=== PATIENT | male | born 1985 | race Caucasian/White ===

== ENCOUNTER → 2020-02-11 14:47 | Outpatient (BNVA) | payer MEDICAID, SELFPAY | PROVIDERS: PCP Internal Medicine; Referring Provider Internal Medicine; Visit Provider Physician Assistant | DX: Z76.89 Persons encountering health services in other specified circumstances (principal) ==

== ENCOUNTER → 2020-03-17 08:14 | Outpatient (BNVA) | payer MEDICAID, SELFPAY | PROVIDERS: PCP Internal Medicine; Visit Provider Surgery | DX: Z76.89 Persons encountering health services in other specified circumstances (principal) ==

== ENCOUNTER → 2020-03-23 07:58 | Outpatient (BNVA) | payer SELFPAY | PROVIDERS: PCP Internal Medicine; Visit Provider Surgery | DX: Z76.89 Persons encountering health services in other specified circumstances (principal) ==

== ENCOUNTER → 2020-03-29 08:08 | Outpatient (BNVA) | payer SELFPAY | PROVIDERS: PCP Internal Medicine; Referring Provider Internal Medicine; Visit Provider Surgery | DX: Z76.89 Persons encountering health services in other specified circumstances (principal) ==

== ENCOUNTER 2025-03-21 14:40 | Outpatient (AMB) | payer BC, SELFPAY ==
--- NOTE | 2025-03-21 14:44 | A.OFFPC_ITS ---
Vital Signs 03/21/25 14:45 03/21/25 15:32 Height 5 ft 11.75 in Weight 323 lb 6 oz BMI 44.2 BP 150/96 H 126/88 Blood Pressure Location Lt brachial Lt brachial Position Sitting Respiration 16 Pulse 93 Pulse Source Pulse Oximeter Temp 96.6 F L Temp Source Temporal Artery Scan Pulse Oximetry (%) 98 Oxygen Delivery Method Room Air Intake Visit Reasons: F/U diabetes - see comments Personal Injury Attorney Required: No Accompanied by: Self / Same As Patient Allergies No Known Allergies Allergy (Verified 03/21/25 14:48) Medication List - Last Reconciled 03/21/25 by Dianelys Sewell MD atorvastatin 10 mg PO BEDTIME clonidine HCl 0.1 mg PO QPM PRN duloxetine 30 mg PO DAILY duloxetine 60 mg PO DAILY tirzepatide (Mounjaro) mg subcut Tobacco use date assessed: 03/21/25 Dental Screening Dental Screen Date: 03/21/25 Did you have a dental visit in the last 12 months?: Yes Did you have a dental problem in the last 6 months where you did not have access to dental care?: No Was dental information given to patient?: Patient has dentist HPI HPI Comments History of Present Illness Details The patient is a 39-year-old male presenting to re-establish care and for medication management. Hypertension: The patient recently presented to the emergency room at [facility] with a blood pressure of 154/116 mmHg, where he experienced slight chest pains, back and shoulder pain, and chest tightness. He reports significant life stressors, including work and family issues, which coincided with the blood pressure spike. He takes clonidine occasionally for sleep, which also helps with his blood pre ssure. Hyperlipidemia: The patient takes atorvastatin for high cholesterol and secondary prevention of cardiovascular events. He had previously stopped the medication based on advice from a different provider but has since resumed taking it. Anxiety: The patient is prescribed duloxetine 90 mg (60 mg and 30 mg) for anxiety and reports taking it almost every day. He acknowledges occasional non-adherence, noting that he can tell a difference and becomes more irritable or anxious when he is not on it. He sometimes forgets to take it when he feels well, despite keeping it next to his toothbrush as a reminder. Obesity/Diabetes mellitus type 2: The patient is on Mounjaro for weight management and has seen his weight decrease from a previous 334 pounds to 319 pounds as of this morning. He exp erienced initial side effects of nausea, bloating, and severe diarrhea, which have since resolved. Obstructive Sleep Apnea: The patient uses a CPAP machine, having switched from a BiPAP, and finds it beneficial for his sleep. Following a repeat sleep study, his pressure level was lowered, which required him to purchase a new machine. 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 1. Little interest or pleasure in doing things: not at all 2. Feeling down, depressed, or hopeless: not at all 3. Trouble falling or staying asleep, or sleeping too much: several days 4. Feeling tired or having little energy: several days 5. Poor appetite or overeating: not at all 6. Feeling bad about yourself - or that you are a failure or have let yourself or your family down: not at all 7. Trouble concentrating on things, such as reading the newspaper or watching television: several days 8. Moving or speaking so slowly that other people could have noticed. Or the opposite - being so fidgety or restless that you have been moving around a lot more than usual: not at all 9. Thoughts that you would be better off or of hurting yourself in some way: not at all Total score: 3 Depression Screening Interpretation: Negative Depression Screening Done: Yes 49549 - PHQ-9 Billing: Yes Source: Developed by Drs. Damon Parish, Jeimy Rasmussen, Fer Murillo and colleagues, with an educational juan antonio from [employer]. AUDIT C Alcohol Use Questionnaire (AUDIT-C) 1. How often do you have a drink containing alcohol?: Monthly or less 2. How many drinks containing alcohol do you have on a typical day when you are drinking?: 1 or 2 3. How often do you have six or more drinks on one occasion?: Never Total Score: 1 ROSI-7 AMB Questionnaire ROSI-7 Date ROSI - 7 assessed: 03/21/25 Feeling nervous, anxious, or on edge: 2 = More than half the days Not being able to stop or control worryin = More than half the days Worrying too much about different things: 2 = More than half the days Trouble relaxin = More than half the days Being so restless that it is hard to sit still: 1 = Several days Becoming easily annoyed or irritable: 2 = More than half the days Feeling afraid as if something awful might happen: 0 = Not at all Total ROSI-7 score (0-4 normal; 5-9 mild; 10-14 moderate; 15-21 severe): 11 Source: Developed by Drs. Damon Parish, Jeimy Rasmussen, Fer Murillo and colleagues, with an educational juan antonio from [employer]. Review of Systems Narrative Review of Systems - Constitutional: Reports weight loss and improved endurance. - Cardiovascular: per hpi - Denies current swelling in the legs. - Respiratory: Reports his endurance has significantly improved with weight loss. - Gastrointestinal: constipation occasionally - Pyschiatric: Reports being under a lot of stress. Physical exam (Primary Care) Vital Signs: Last Vital Signs Temp 96.6 F L 03/21/25 14:45 Pulse 93 03/21/25 14:45 Resp 16 03/21/25 14:45 BP 126/88 03/21/25 15:32 Pulse Ox 98 03/21/25 14:45 Oxygen Delivery Method Room Air 03/21/25 14:45 BMI result Body Mass Index 44.2 Tobacco/Smoking Status: Tobacco use Status Tobacco use date assessed 03/21/25 03/21/25 14:47 Patient Tobacco Use Status Current someday Tobacco 03/21/25 14:55 e-Cigarette/Vaping Use Never Used 03/21/25 14:55 PHQ-9: PHQ-9 Score PHQ-9: Total score 3 03/21/25 16:21 Depression Screening Interpretation: Negative Narrative Physical Exam - Vitals: Blood pressure is 126/88 mmHg on repeat. - Cardiovascular: Heart has normal sounds and a soft murmur - Respiratory: Lungs are clear to auscultation bilaterally. - Abdomen: Soft, non-tender to palpation, with normal sounds. - Extremities: No edema noted. Coding Level of Care Code Est Pt Level 4 (49029) Complex EM visit Add On G2211 Diagnoses Primary hypertension I10 Hyperlipidemia, unspecified hyperlipidemia type E78.5 Hyperlipidemia type: unspecified Type 2 diabetes mellitus without complication, without long-term current use of insulin E11.9 Diabetes mellitus type: type 2 Diabetes mellitus intermediate teacher insulin use: without intermediate teacher use Diabetes mellitus complication status: without complication Morbid obesity E66.01 KAELYN (obstructive sleep apnea) G47.33 Additional Codes PHQ-9 - 26448 - PHQ-9 Billing: Yes ([id number]) Assessment & Plan Assessment & Plan (1) Primary hypertension: Code(s): I10 - Essential (primary) hypertension Category: Medical (2) Hyperlipidemia, unspecified: Code(s): E78.5 - Hyperlipidemia, unspecified Category: Medical Qualifiers: Hyperlipidemia type: unspecified Qualified Code(s): E78.5 - Hyperlipidemia, unspecified (3) Diabetes mellitus: Code(s): E11.9 - Type 2 diabetes mellitus without complications Category: Medical Qualifiers: Diabetes mellitus type: type 2 Diabetes mellitus intermediate teacher insulin use: without detention use Diabetes mellitus complication status: without complication Qualified Code(s): E11.9 - Type 2 diabetes mellitus without complications (4) Morbid obesity: Code(s): E66.01 - Morbid (severe) obesity due to excess calories Category: Medical (5) KAELYN (obstructive sleep apnea): Code(s): G47.33 - Obstructive sleep apnea (adult) (pediatric) Category: Medical Plan Assessment and Plan 1. Hypertension - The patient's blood pressure has improved to 126/88 mmHg - The plan is to advise the patient to take clonidine nightly to help manage blood pressure and improve sleep. - The blood pressure goal is less than 130/80 mmHg. 2. Hyperlipidemia - The patient understands the rationale for taking atorvastatin for plaque prevention. - He has restarted the medication. 3. Anxiety - Managed with duloxetine, though adherence is intermittent sometimes. 4. Obesity/Diabetes mellitus type 2 - The patient is responding well to Mounjaro with significant weight loss. - The importance of combining it with diet and exercise was emphasized. - Refills for Mounjaro will be sent. 5. Obstructive Sleep Apnea - Well-managed on CPAP. - The plan is to continue nightly use. Follow up in 4 months for physical Plan - Advised patient to take clonidine every night to help with blood pressure and sleep. - Continue atorvastatin daily for hyperlipidemia - Continue duloxetine 90 mg (60 mg and 30 mg) daily for anxiety. - Continue weekly Mounjaro injections for weight management. - Continue nightly CPAP use for obstructive sleep apnea. Discussion Notes I discussed with the patient his recent visit to the emergency room for a hypertensive crisis, noting that his blood pressure today has significantly improved to 126/88 mmHg. We reviewed the contribution of significant life stressors to his blood pressure elevation. I advised him to take clonidine every night to help manage both his blood pressure and sleep, explaining that the ideal BP target is below 130/80 mmHg. We confirmed the importance of continuing atorvastatin for secondary prevention. We also discussed his excellent progress with weight loss and diabetes mellitus type 2 treatment on Mounjaro and the need to continue combining it with diet and exercise. Patient Instructions - Take your clonidine medication every night. - This will help with both your sleep and your blood pressure. - Continue taking atorvastatin every day for your cholesterol. - Be sure to take your duloxetine for anxiety every day. - Continue your weekly Mounjaro injections for weight loss. - Continue to use your CPAP machine every night. Orders: Orders Hemoglobin A1c Today E11.9 - Type 2 diabetes mellitus without complications, E66.01 - Morbid (severe) obesity due to excess calories, E78.5 - Hyperlipidemia, unspecified, I10 - Essential (primary) hypertension Herpes Simplex Virus Ab IgG Today Z20.2 - Contact with and (suspected) exposure to infections with a predominantly sexual mode of transmission Comprehensive Met. Panel Today E11.9 - Type 2 diabetes mellitus without complications, E66.01 - Morbid (severe) obesity due to excess calories, E78.5 - Hyperlipidemia, unspecified, I10 - Essential (primary) hypertension Complete Blood Count Auto Diff Today E11.9 - Type 2 diabetes mellitus without complications, E66.01 - Morbid (severe) obesity due to excess calories, E78.5 - Hyperlipidemia, unspecified, I10 - Essential (primary) hypertension TSH reflex Free T4 Today E11.9 - Type 2 diabetes mellitus without complications, E66.01 - Morbid (severe) obesity due to excess calories, E78.5 - Hyperlipidemia, unspecified, I10 - Essential (primary) hypertension Microalbumin, Random (w Creat) Today E11.9 - Type 2 diabetes mellitus without complications, E66.01 - Morbid (severe) obesity due to excess calories, E78.5 - Hyperlipidemia, unspecified, I10 - Essential (primary) hypertension LDL Cholesterol Direct Today E11.9 - Type 2 diabetes mellitus without complications, E78.5 - Hyperlipidemia, unspecified, I10 - Essential (primary) hypertension Medications: New atorvastatin 10 mg PO BEDTIME 90 tabs 3RF cholesterol duloxetine 30 mg PO DAILY 90 caps 3RF 90 days duloxetine 60 mg PO DAILY 90 caps 3RF clonidine HCl 0.1 mg PO QPM 90 tabs 3RF tirzepatide (Mounjaro) 15 mg (0.5 mL) subcut QWEEK 2 mL 11RF
[2025-03-21 14:45] VITALS: BP 150/96; PULSE 93; RESP 16; TEMP 35.9; O2SAT 98; BMI 44.2
[2025-03-21 15:32] VITALS: BP 126/88
== END 2025-03-21 15:43 | disposition home or self-care (01) ==
LOC: HO.HMCHD 14:40
PROVIDERS: PCP Internal Medicine; Visit Provider Internal Medicine
DX: I10 Essential (primary) hypertension (principal); E78.5 Hyperlipidemia, unspecified; E11.9 Type 2 diabetes mellitus without complications; E66.01 Morbid (severe) obesity due to excess calories; G47.33 Obstructive sleep apnea (adult) (pediatric)

== ENCOUNTER 2025-03-21 14:40 | Outpatient (REF) | payer BC, SELFPAY ==
[2025-03-21 16:04] LABS: MANUAL DIFF FLAG NO
[2025-03-21 16:22] LABS: Hematocrit 44.8 % (42.0-52.0); Hemoglobin 15.1 g/dl (14.0-18.0); Imm Gran Abs Auto 0.02 X10*3/uL (0.00-0.03); Imm Gran Pct Auto 0.2 % (0.0-0.4); Lymphocytes Absolute Auto 1.6 X10*3/uL (1.2-4.9); Mean Corpuscular HGB Conc 33.7 g/dl (31.0-36.0); Mean Corpuscular Hemoglobin 29.6 pg (27.0-33.0); Mean Corpuscular Volume 87.8 fL (80.0-98.0); NRBC Abs Auto 0.000 X10*3/uL (0.0-0.012); NRBC Pct Auto 0.0 /100WBC (0.0-0.2); Platelet Count 182 X10*3/uL (160-400); Red Blood Count 5.10 X10*6/uL (4.60-5.80); White Blood Count 8.4 X10*3/uL (4.8-10.8)
[2025-03-21 17:02] LABS: Alanine Aminotransferase 31 U/L (0-40); Albumin Level 4.3 g/dL (3.5-5.0); Alkaline Phosphatase 82 U/L (39-117); Anion Gap 9 (12-20); Aspartate Amino Transferase 30 U/L (5-37); Blood Urea Nitrogen 13 mg/dL (9-16); Calcium 9.2 mg/dL (8.4-10.2); Carbon Dioxide 30 mmol/L (22-29); Chloride 106 mmol/L (96-108); Estimated Glomerular Filt Rate > 60; Potassium 4.5 mmol/L (3.3-5.1); Sodium 140 mmol/L (135-145); Total Protein 7.6 g/dL (6.5-8.0)
[2025-03-21 17:14] LABS: Microalbum/Creatinine Ratio Ur 11.4 ug/mg cr (<30)
== END 2025-03-21 14:41 | disposition home or self-care (01) ==
LOC: HO.LAB 14:40
PROVIDERS: PCP Internal Medicine; Visit Provider Internal Medicine
DX: I10 Essential (primary) hypertension (principal); E78.5 Hyperlipidemia, unspecified; E11.9 Type 2 diabetes mellitus without complications; E66.01 Morbid (severe) obesity due to excess calories; Z20.2 Contact with and (suspected) exposure to infections with a predominantly sexual mode of transmission; G47.33 Obstructive sleep apnea (adult) (pediatric); Z68.41 Body mass index [BMI] 40.0-44.9, adult; Z79.899 Other long term (current) drug therapy
CPT/HCPCS: 36415; 80053; 82043; 82570; 83036; 83721; 84443; 85025; 86695; 86696; 96127